=== PATIENT | female | born 1990 | race Caucasian/White ===

== ENCOUNTER 2017-08-26 02:10 | Emergency (ER) | payer OTHER ==
[2017-08-26] MEDS ORDERED: Promethazine 25 MG TAB ONE (03:23)
== END 2017-08-26 03:26 | disposition left against medical advice (07) ==
LOC: MADERS 02:10
DX: R10.31 Right lower quadrant pain (principal); F41.9 Anxiety disorder, unspecified; F17.210 Nicotine dependence, cigarettes, uncomplicated; F43.10 Post-traumatic stress disorder, unspecified; Z79.899 Other long term (current) drug therapy; Z87.442 Personal history of urinary calculi
CPT/HCPCS: 99284

== ENCOUNTER 2017-09-04 19:57 | Emergency (ER) | payer OTHER ==
[~2017-09-04 19:57] MED LIST: Sodium Chloride 0.9% 1,000 ML BAG ONE
[2017-09-04 21:24] LABS: Bilirubin Negative (Negative); Blood, Urine Negative (Negative); Clarity Clear (Clear); Glucose, Urine (Dipstick) Negative (Negative); Leukocyte Negative (Negative); Nitrite Negative (Negative); Pregnancy Test - Urine (BHCG) Negative (Negative); Pregu Control Background? CLEAR/WHITE (CLR/WHITE); Pregu Control Bar Appear? YES (CONTROL BAR); Protein, Urine (Dipstick) Negative (Neg-Trace); Specific Gravity 1.015 (1.002-1.036); Specific Gravity, Urine 1.015 (1.005-1.030); Urobilinogen 0.2 mg/dL (0.2-1.0); pH, Urine 5.5 (5.0-9.0)
[2017-09-04] MEDS ORDERED: Promethazine HCl 25 MG/ML VIAL ONE ×2 (21:41→22:32)
[2017-09-04 21:45] LABS: #Basophils 0.1 thou/uL (0.0-0.2); #Eosinphils 0.6 thou/uL (0.0-0.7); #Lymphocytes 2.4 thou/uL (1.20-3.40); #Monocytes 0.5 thou/uL (0.11-0.59); #Neutrophils 2.2 thou/uL (1.40-6.50); %Basophils 1.5 % (0.0-1.0); %Eosinophils 10.8 % (0.0-10.0); %Lymphocytes 40.6 % (21.0-51.0); %Monocytes 8.9 % (0.0-10.0); %Neutrophils 38.3 % (42.0-75.0); Hemoglobin 9.8 g/dL (12.0-16.0); Hypochromia SLIGHT = 6-15 cells (100X) (0-5/hpf); MDiff Complete? YES; Mean Corpuscular HGB CONC 32.5 g/dL (32.0-36.0); Mean Corpuscular Hemoglobin 23.3 pg (27.0-31.0); Mean Corpuscular Volume 71.6 fl (81.0-99.0); Mean Platelet Volume 6.4 fL (7.4-10.4); Microcytosis SLIGHT = 6-15 cells (100X) (0-5/hpf); Ovalocytes SLIGHT = 2-5 cells (100X) (0-1/hpf); PLT Morphology Comment Appears Adequate; Platelet Count 271 thou/uL (130-400); RBC Distribution Width 19.5 % (11.5-14.5); RBC Morphology Abnormal; White Blood Cell (WBC) Count 5.8 thou/uL (4.8-10.8)
[2017-09-04] MEDS ORDERED: Morphine 10 MG/ML VIAL ONE ×2 (21:50→22:59)
[2017-09-04 21:54] LABS: ALT (SGPT) Less than 7 U/L (8-55); AST (SGOT) 15 U/L (5-34); Alkaline Phosphatase 74 U/L (40-150); Anion Gap 15 mmol/L (10-20); BUN (Urea Nitrogen) 14 mg/dL (7.0-18.7); Bilirubin, Total Less than 0.2 mg/dL (0.2-1.2); Calc. Creatinine Clearance 0 mL/min (70-130); Calcium 9.1 mg/dL (7.8-10.44); Carbon Dioxide 22 mmol/L (22-29); Chloride 106 mmol/L (98-107); Estimated GFR-MDRD 81; Globulin 2.7 g/dL (2.4-3.5); Glucose 85 mg/dL (70-105); Potassium 4.1 mmol/L (3.5-5.1); Protein, Total 6.7 g/dL (6.0-8.3); Sodium 139 mmol/L (136-145)
--- NOTE | 2017-09-04 22:34 | CT ---
CT ABDOMEN AND PELVIS WITHOUT IV CONTRAST: INDICATIONS: Left lower quadrant abdominal pain with nausea and vomiting. FINDINGS: No renal or ureteral calculus is demonstrated. There is a moderate amount of retained stool within the colon. The gallbladder is surgically absent, which is stable to a comparison study dated 01/23/2017. Unopacified liver, spleen, pancreas, and adrenal glands are unremarkable. A normal appendix is seen within the right lower quadrant. The bladder, the rectum, and perirectal soft tissue are unremarkable. No acute osseous abnormality is evident. IMPRESSION: 1. Mild amount of retained stool. 2. No renal or ureteral calculus. POS: [facility]
== END 2017-09-04 23:25 | disposition home or self-care (01) ==
LOC: MADERS 19:57
DX: R10.32 Left lower quadrant pain (principal); R11.2 Nausea with vomiting, unspecified; F41.9 Anxiety disorder, unspecified; F17.210 Nicotine dependence, cigarettes, uncomplicated; Z87.442 Personal history of urinary calculi
CPT/HCPCS: 36415; 74176; 80053; 81003; 81025; 85025; 96361; 96374; 96375; 96376; J2270; J2550; J7050